=== PATIENT | female | born 1950 | race Hispanic/Latino ===

== ENCOUNTER 2017-02-28 14:04 | Emergency (ER) | payer MEDICARE, OTHER ==
[2017-02-28 14:09] VITALS: BP 175/95; PULSE 67; RESP 18; TEMP 97.7; O2SAT 99
--- NOTE | 2017-02-28 14:31 | ED PDOC ---
Lower Extremity Pain/Injury Time Seen by Provider: 02/28/17 14:11 Chief Complaint (Nursing): Lower Extremity Problem/Injury Chief Complaint (Provider): Left knee pain History Per: Patient History/Exam Limitations: no limitations Onset/Duration Of Symptoms: Mins Current Symptoms Are (Timing): Still Present Additional History Per: EMS Additional Complaint(s): The patient is a 67yo female, with no known past medical history, presents to the ED for evaluation of knee and neck pain s/p slipping and falling prior to arrival. Patient reports she was doing groceries and slipped on a wet floor and fell, injuring her knee and neck. She denies any head injury or loss of consciousness. Patient currently offers no additional medical complaints. - Knee Description Of Injury: Fell Past Medical History Reviewed: Historical Data, Nursing Documentation, Vital Signs Vital Signs: Last Vital Signs Temp 97.7 F 02/28/17 14:07 Pulse 67 02/28/17 14:07 Resp 18 02/28/17 14:07 BP 175/95 H 02/28/17 14:07 Pulse Ox 99 02/28/17 14:07 - Medical History PMH: No Chronic Diseases - Surgical History Surgical History: No Surg Hx - Family History Family History: States: Unknown Family Hx - Allergies Allergies/Adverse Reactions: Allergies Allergy/AdvReac Type Severity Reaction Status Date / Time No Known Allergies Allergy Verified 02/28/17 14:07 Review of Systems ROS Statement: Except As Marked, All Systems Reviewed And Found Negative Musculoskeletal: Positive for: Neck Pain, Leg Pain Neurological: Negative for: Headache Physical Exam - Reviewed Nursing Documentation Reviewed: Yes Vital Signs Reviewed: Yes - Physical Exam Appears: Positive for: Well, Non-toxic, No Acute Distress Head Exam: Positive for: ATRAUMATIC, NORMAL INSPECTION, NORMOCEPHALIC Skin: Positive for: Normal Color Eye Exam: Positive for: Normal appearance Neck: Positive for: Normal (no c-spine tenderness noted; + right trapezius tenderness to palpation), Supple Respiratory: Negative for: Respiratory Distress Pulses-Dorsalis Pedis (L): 2+ Pulses-Dorsalis Pedis (R): 2+ Back: Positive for: Normal Inspection, Other (C-spine non-tender ) Extremity: Positive for: Normal ROM, Other (Tendernes of the patella, steady gait, Pelvic stable, hip non-ternder ). Negative for: Deformity, Swelling Neurologic/Psych: Positive for: Alert, Oriented. Negative for: Motor/Sensory Deficits - ECG O2 Sat by Pulse Oximetry: 99 (RA) Pulse Ox Interpretation: Normal Medical Decision Making Medical Decision Making: Time: 1425 Impression: Left knee pain, neck pain s/p fall Plan: -- XR left knee Reassess Pt states she will take medications for pain at home. Knee x-ray normal Scribe Attestation: Documented by Mickie Oconnell acting as a scribe for BRANDY Thomas Provider Attestation: All medical record entries made by the Scribe were at my direction and personally dictated by me. I have reviewed the chart and agree that the record accurately reflects my personal performance of the history, physical exam, medical decision making, and the department course for this patient. I have also personally directed, reviewed, and agree with the discharge instructions and disposition. Disposition - Clinical Impression Clinical Impression: Knee contusion - Patient ED Disposition Is Patient to be Admitted: No Counseled Patient/Family Regarding: Diagnosis, Need For Followup - Disposition Referrals: Winston Hicks MD [Medical Doctor] - [facility] [Outside] On License Of [facility] [Outside] Disposition: Routine/Home Disposition Time: 15:31 Condition: GOOD Additional Instructions: Ice, elevation. Please follow-up with orthopedics if pain continues. Tylenol or motrin for pain. Instructions: Contusion in Adults (ED) Forms: [facility] ([place])
--- NOTE | 2017-02-28 16:20 | RAD ---
PROCEDURE: Left Knee Radiographs. HISTORY: Pain. COMPARISON: None. FINDINGS: BONES: Normal. No fracture. JOINTS: Joint spaces preserved. No significant osteoarthritis. JOINT EFFUSION: None. OTHER FINDINGS: None. IMPRESSION: No evidence of acute displaced fracture nor dislocation
== END 2017-02-28 16:24 | disposition home or self-care (01) ==
LOC: H.ER 14:04
DX: S80.01XA Contusion of right knee, initial encounter (principal); W19.XXXA Unspecified fall, initial encounter; Y92.89 Other specified places as the place of occurrence of the external cause